=== PATIENT | male | born 1985 | race Caucasian/White ===

== ENCOUNTER → 2018-11-24 | Outpatient (CLI) | payer OTHER ==
--- NOTE | 2018-11-24 11:43 | REP ---
Chest x-ray: Two views. History: Dyspnea. Findings: The lungs are symmetrically aerated and clear. The pleural angles are sharp. Heart size is normal. Pulmonary vasculature is not increased. No significant bony abnormality. Impression: No active disease. Electronically Signed by Wan Mireles MD 11/24/2018 11:35 A
== END ==
LOC: M SMT 10:53
PROVIDERS: ATTEND Physician Assistant
DX: R06.00 Dyspnea, unspecified (principal)

== ENCOUNTER → 2018-12-08 | Outpatient (CLI) | payer OTHER ==
--- NOTE | 2018-12-08 10:16 | PFTRPT ---
Height: 69.00 Inches Weight: 250.00 Lbs BSA: 2.27 Diagnosis: R06.00 DATE OF STUDY: 12/08/2018 ORDERED BY: Sai Macias PA-C Spirometry: Pre and post bronchodilator study of excellent technical quality. Forced vital capacity normal. FEV1 in proportion. Obstructive index is, therefore, normal. Flow Volume Loop: Expiratory limb of the flow volume loop is normal. No significant bronchodilator response identified. Lung Volumes: Total lung capacity normal. Residual volume in proportion. Diffusing Capacity: Diffusing capacity normal, remains normal when corrected for alveolar volume. Hemoglobin: Hemoglobin acceptable at 15. Airway Mechanics: Airway resistance and conductance are normal. IMPRESSION: Normal study. MTDD
== END ==
LOC: M CARPUL 09:23
PROVIDERS: ATTEND Physician Assistant
DX: R06.00 Dyspnea, unspecified (principal)

== ENCOUNTER → 2019-01-05 | Outpatient (CLI) | payer OTHER ==
[~2019-01-05] MED LIST: METHACHOLINE KIT (J7674) INH ONE
--- NOTE | 2019-01-05 15:37 | PFTRPT ---
Site: [facility], [address] [place], [address] ID: [id number] Name: YVAN VILLARREAL Visit Date: 01/05/2019 Second ID: [id number] Referring Doctor: MARK Macias, Zeferino Gibbs Reviewing Doctor: Luigi Colon MD Social Media Analyst: Jim SMITH RRT Age: 33 : 1985 Sex: Male Race: Height: 69.00 Inches Weight: 250.00 Lbs BSA: 2.27 Order IDs: [id number] Requested Test(s): <RESP-PFT.METH CHAL> Diagnosis: R06.00 puffs of albuterol for post bronchodilator. Review Status: Not Reviewed Pre-Bronch Post-Bronch Pred Actual %Pred Actual %Chng SPIROMETRY FVC (L) 5.28 4.72 89 4.53 -3 FEV1 (L) 4.30 3.91 90 3.69 -5 FEV1/FVC (%) 82 83 101 81 -1 FEF 25% (L/sec) 8.94 8.35 93 7.51 -10 FEF 50% (L/sec) 6.20 4.80 77 4.26 -11 FEF 75% (L/sec) 2.24 1.77 79 1.16 -34 FEF 25-75% (L/sec) 4.30 3.97 92 3.35 -15 FEF Max (L/sec) 10.03 8.61 85 7.58 -11 FIVC (L) 3.62 3.96 9 FIF 50% (L/sec) 5.46 7.17 131 3.18 -55 FIF Max (L/sec) 7.17 3.73 -47 Expiratory Time (sec) 5.13 4.62 -9 Back Extrap Vol (L) 0.14 0.17 22 Time To FEFmax (sec) 0.092 0.134 44
== END ==
LOC: M CARPUL 14:28
PROVIDERS: ATTEND Physician Assistant
DX: R06.00 Dyspnea, unspecified (principal)
CPT/HCPCS: 94070; J7674